=== PATIENT | male | born 1945 | race Caucasian/White ===

== ENCOUNTER → 2017-04-09 | Outpatient (CLI) | payer OTHER, MEDICARE ==
[~2017-04-09] VITALS: Ht 172.7 cm; Wt 73.5 kg
[~2017-04-09] MED LIST: CALCIUM 600 +1 EAC8 PO; CLARITIN10 MG PO; HYDROCHLOROTHIA25 M2 PO; LEVOTHYROXINE 0.1 MG PO; MULTIVITAMINS PO; NABUMETONE 750750 M1 PO; NASACORT10.8 ML NASAL; NEURONTIN600 MG PO; NORCO 10-325 T1 EACH PO; VITAMIN D2000 UNIT PO
--- NOTE | ~2017-04-09 | HPC ---
[facility] [address] [place] [address] PAIN MANAGEMENT CONSULTATION Name: RODOLFO BRICE JR Room #: REG [facility].#: [id number] Admission: 04/09/17 Attend Phys: Juan Bradley DO Discharge: Date of : 43 Report #: [id number] THIS REPORT FOR: //name// CC: Phoenix Bradley DATE OF SERVICE: 04/09/2017 The patient is a very pleasant 72-year-old gentleman seen in consultation at the request of Dr. Bourne for evaluation of pain, low back and right leg. The patient notes that he saw Dr. Bourne for right leg pain in October. Symptoms at that time were mostly cramping. About 6 weeks ago, developed acute exacerbation of pain requiring him to use a crutch, pain in the right leg, posterolateral aspect exacerbated with walking and standing. Again, using a crutch on the right side to offload some weight. He notes that he has tried nonsteroidal anti-inflammatory medications with nominal efficacy. Prednisone Dosepak afforded no relief. States he is typically very active, he cycles on a bicycle 3-4 times a week up to 1-1/2 to 2 hours at a time. Pain has become quite problematic and is interfering with function presently. States he has a prescription for hydrocodone, which he uses nominally. He takes gabapentin 600 mg 3 times a day, although this is actually a unique treatment for a baseline tremor. He describes continuous cramping, aching, tender pain, rates anywhere from 7-10 on a VAS. Denies specific lower extremity myelopathic symptoms, though states he is getting a little bit of weakness in the left side. Pain is exacerbated with standing and walking. REVIEW OF SYSTEMS: Complete review of systems attached to chart and gone over with the patient. SOCIAL HISTORY: He is , does not smoke or drink alcohol to excess. The patient is retired. He uses hydrochlorothiazide for history of renal stones, low dose 25 mg. Synthroid for long history of thyroid concerns, had thyroidectomy in 2000. He was diagnosed with an autoimmune disease, nonspecific several years ago, signs and symptoms have generally resolved. Pain impact score, however, is fairly high at 62 out 70. PHYSICAL EXAMINATION: VITAL SIGNS: This is a 5 feet 8 inches, 162 pound gentleman. BMI is 24.6 kilograms per meter squared. Blood pressure 145/87, pulse 60 and respirations are 18. NEUROLOGIC: Cranial nerves 2-12 are grossly intact. Pupils are equal and reactive to light and accommodation. Extraocular muscles are intact. There is no nystagmus or lateral gaze deviation. [address] [address] PAIN MANAGEMENT CONSULTATION Name: YUNIELRODOLFO AUSTIN MAYO [facility] [id number] Admission: 04/09/17 Attend Phys: Juan Bradley DO Discharge: Date of : 43 Report #: [id number] NECK: Thyroid is essentially unremarkable. He is status post thyroidectomy and no nodules are noted. Cervical range of motion is full. Upper extremity strength is preserved, 4/5. HEART: Regular and rhythmical with a mild 1-2/6 systolic ejection murmur. LUNGS: Clear to auscultation. ABDOMEN: Unremarkable. EXTREMITIES: Rises from chair using armrest, moderately antalgic gait, unable to walk on his right toes or heels. Lumbar flexion is good to 90 degrees. Right hip flexion and lower extremity extension and dorsiflexion, plantarflexion all diminished 3-4/5. Left leg is much stronger 4-5/5. Straight leg raise is positive at 30 degrees on the right. Patellar reflexes are preserved. Achilles reflexes are diminished on the right. MRI from 11/2016 notes herniated disk at L5-S1 right midline. ASSESSMENT: Symptomatic lumbar radiculopathy by clinical exam. RECOMMENDATIONS: 1. Epidural injection under fluoroscopy today at L5-S1. 2. Relafen 750 b.i.d. Discontinue vqmu-par-qaomaxn anti-inflammatories. 3. Follow up in 3 weeks for reevaluation. Thank you for allowing me to participate in the patient's care. I will keep you abreast of his progress. PROCEDURE NOTE PROCEDURE: Lumbar epidural injection under fluoroscopy. DESCRIPTION OF PROCEDURE: After both written and informed consent to include risk of spinal cord damage, increased pain, weakness and dural puncture, the patient was taken to the fluoroscopy suite, placed in the prone position. After sterile prep and drape, a skin wheal with lidocaine was raised. A 22-gauge epidural Tuohy needle was inserted in the midline at L5-S1 with good loss to resistance. Negative aspiration for cerebrospinal fluid or blood was noted. Then 1 mL of Omnipaque under biplanar fluoroscopy showed good spread within the epidural space. This was followed with 80 mg of triamcinolone plus 1 mL of 1.5% preservative-free Xylocaine, 0.5 mL Xylocaine was then injected to flush the needle; it was removed. The patient was monitored for an appropriate period of time and discharged in good and stable condition. <ELECTRONICALLY SIGNED> By: Juan Bradley DO 04/16/17 0847 1553 13 Juan Bradley, DO /nt
[2017-04-09 12:45] VITALS: BP 145/87
== END | disposition home or self-care (01) ==
LOC: PAIN 07:37
DX: M51.16 Intervertebral disc disorders with radiculopathy, lumbar region (principal); Z79.1 Long term (current) use of non-steroidal anti-inflammatories (NSAID)

== ENCOUNTER → 2017-04-27 | Outpatient (CLI) | payer OTHER, MEDICARE ==
[~2017-04-27] VITALS: Ht 172.7 cm; Wt 76.3 kg
--- NOTE | ~2017-04-27 | HPC ---
[facility] [place] [address] [address] [place] [address] PAIN MANAGEMENT CONSULTATION Name: RODOLFO BRICE JR Room #: REG [facility].#: [id number] Admission: 04/27/17 Attend Phys: Juan Bradley DO Discharge: Date of : 43 Report #: [id number] THIS REPORT FOR: //name// CC: Phoenix Bradley The patient is a 72-year-old gentleman seen in consultation 04/09/2017, given epidural injection at that time, returns to pain clinic today noting that he had significant overall improvement, in fact claiming 80% relief ongoing, but still has pain that he rates 5 on a VAS, right lateral leg burning sensation in the calf. Pain exacerbated with standing greater than 2-3 minutes. PHYSICAL EXAMINATION: Still remains relatively unchanged from last visit. Vital signs stable, BMI is 25.6. Positive straight leg raise on the right, slight decreased plantar flexion though, strength is improving. ASSESSMENT: Symptomatic lumbar radiculopathy. RECOMMENDATIONS: Repeat epidural injection under fluoroscopy today. Follow up in 1 month for reevaluation. Cancel if doing well. PROCEDURE: Lumbar epidural injection under fluoroscopy. PROCEDURE NOTE: After both written and informed consent to include risk of spinal cord damage, increased pain, weakness and dural puncture, the patient was taken to the fluoroscopy suite, placed in the prone position. After sterile prep and drape, a skin wheal with lidocaine was raised. A 22-gauge epidural Tuohy needle was inserted in the midline at L5-S1 with good loss to resistance. Negative aspiration for cerebrospinal fluid or blood was noted. Then 1 mL of Omnipaque under biplanar fluoroscopy showed good spread within the epidural space. This was followed with 80 mg of triamcinolone plus 1 mL of 1.5% preservative-free Xylocaine, 0.5 mL Xylocaine was then injected to flush the needle; it was removed. The patient was monitored for an appropriate period of time and discharged in good and stable condition. By: [id number] Juan Bradley DO /nt
[2017-04-27 10:30] VITALS: BP 139/80
== END | disposition home or self-care (01) ==
LOC: PAIN 07:11
DX: M54.16 Radiculopathy, lumbar region (principal); Z98.890 Other specified postprocedural states; Z79.899 Other long term (current) drug therapy; Z88.1 Allergy status to other antibiotic agents

== ENCOUNTER → 2017-06-04 | Outpatient (CLI) | payer OTHER, MEDICARE ==
[~2017-06-04] VITALS: Ht 172.7 cm; Wt 74.6 kg
[~2017-06-04] MED LIST changes: +VALIUM5 MG PO
--- NOTE | ~2017-06-04 | HPC ---
[facility] [place] [address] PAIN MANAGEMENT CONSULTATION Name: RODOLFO BRICE JR [facility] [id number] Admission: 06/04/17 Attend Phys: Juan Bradley DO Discharge: Date of : 43 Report #: [id number] THIS REPORT FOR: //name// CC: Phoenix Bradley DATE OF SERVICE: 06/04/2017 The patient is a 72-year-old gentleman seen on 04/27/2017 for a second lumbar epidural injection at L5-S1. He returns to pain clinic today noting pain is essentially absent, maybe a 1 on the VAS. Notes he has some occasional tingling in the right calf, still has sensation of walking on "crumbled up sock" on the right side, but notes the pain has dramatically improved. States he is actually pretty much pain free when I told him to stop the nabumetone, pain has come back a little bit, it is fairly nominal. PHYSICAL EXAMINATION: Shows pleasant 72-year-old gentleman, BMI is 25 kg/m2. Vital signs are stable as noted in the EMR. Rises from chair using armrest. Gait is tandem. Lower extremity strength is preserved. Dorsiflexion and plantarflexion is symmetric. Straight leg raise is negative at this time. Reviewed diagnostic findings including his MRI from 03/13/2017, which had noted a small right paracentral disk herniation at L5-S1 causing mass effect on the right paracentral nerve root. ASSESSMENT: Symptomatic lumbar radiculopathy, neuropathic pain, with dramatic improvement following 2 epidural injections. RECOMMENDATION: Long discussion with the patient today about therapeutic option. I told him to continue physical activity including daily walking and cycling, discontinue nabumetone, simply use Aleve qmcv-mve-kfqfika twice a day on active days. Encouraged nondaily use for general cardiac concerns, though patient has 0 risk factors (does not smoke, does not have hypertension, no dyslipidemia, no known coronary artery disease). I will be happy to see the patient if lumbar radicular symptoms recur. Presently, he is doing remarkably well. Discharge in stable condition. No followup appointment required. Thank you for allowing me to participate in the patient's care. <ELECTRONICALLY SIGNED> By: Juan Bradley DO 06/05/17 0654 [id number] Juan Bradley DO /nt
[2017-06-04 10:23] VITALS: BP 128/81
== END ==
LOC: PAIN 05-25 07:25
DX: M54.16 Radiculopathy, lumbar region (principal)

== ENCOUNTER → 2018-05-21 | Outpatient (CLI) | payer OTHER, MEDICARE ==
[~2018-05-21] VITALS: Ht 172.7 cm; Wt 74.2 kg
[~2018-05-21] MED LIST changes: +AZELASTINE137 MCG/0.; +CALCITRATE200 MG PO; +HYDROCODON-ACE1 EAC5 PO; +HYDROCODONE-AP1 EA11 PO; +MOBIC15 MG PO
--- NOTE | ~2018-05-21 | HPC ---
[facility] [address] [place] [address] PAIN MANAGEMENT CONSULTATION Name: YUNIELRODOLFO AVILA [facility]: [facility] [id number] Admission: 05/21/18 Attend Phys: Ash Donohue MD Discharge: Date of : 43 Report #: [id number] THIS REPORT FOR: //name// CC: Phoenix Donohue DATE OF SERVICE: 05/21/2018 FOLLOWUP COMPLAINT: Here for another injection pain was helped, but still having pain. FOLLOWUP HISTORY: The patient is a 73-year-old gentleman who has been seen and followed in the pain clinic because of lumbar radiculopathy. He underwent an epidural steroid injection at the last visit. He did clean benefits from this for greater than 2 weeks. He has noted some recurrence of pain and discomfort, which he describes as pain in the low back with pain that is radiating down into his buttocks into his foot with numbness and tingling into his right leg. He notes the pain is worse when he is sitting. He notes that the pain somewhat improves with standing. Rates it as an 8/10 at this point. Did notes numbness, tingling, deep aching sensation. He noticed the pain was doing reasonably well after the injection. It flared up after he was lifting some item on 04/18/2018. He has returned today with the hope of undergoing another epidural steroid injection and gleaning and increasing benefits from this. ALLERGIES: LEVAQUIN. CURRENT MEDICATIONS: Meloxicam 15 mg daily, azelastine, multivitamin, vitamin D3 2000 units, calcium 600 units, Nasacort, Claritin 10 mg, hydrochlorothiazide 25 mg and levothyroxine 0.1 PAIN CLINIC ASSESSMENT/PQRS: 1. History of osteoarthritis. The patient is not being treated for osteoarthritis or rheumatoid arthritis. 2. Height 5 feet 8 inches, weight 163 pounds, BMI is 24. 2. Vital signs: Blood pressure 137/89, pulse 71, respiratory rate 14 and room air saturation 98%. 3. Pain intensity 03/19. 4. Fall risk. The patient has not fallen in the last 3 months. 5. Blood thinner. The patient is not on a blood thinning medication. 6. Hypertension. The patient is not being treated for hypertension. 7. Opioid therapy 6 weeks. The patient receives his medications from one source, the pain clinic. 8. Risk assessment tool, low risk for opioid use. 9. Functional assessment tool 63/70. 10. Recreational drug use: The patient denies. 11. Tobacco: [place] [address] PAIN MANAGEMENT CONSULTATION Name: RODOLFO BRICE Room #: REG [facility]#: [id number] Admission: 05/21/18 Attend Phys: Ash Donohue MD Discharge: Date of : 43 Report #: [id number] 12. Alcohol: The patient denies use of alcoholic beverages on a regular basis. PHYSICAL EXAMINATION: GENERAL: The patient is a well-developed, well-nourished white male. Appears his stated age. He is alert and oriented x 3. His affect is appropriate. Speech is fluent, has a number of questions, which are appropriate. These were answered. HEENT: Normocephalic, atraumatic. Extraocular eye muscles intact. Sclerae nonicteric. Mucous membranes are moist. Sclerae not injected. Hearing is within normal limits. NECK: Without adenopathy or JVD. CHEST: Clear to auscultation without rhonchi or rales. HEART: Regular rate. S1, S2. ABDOMEN: Nontender, without organomegaly. MUSCULOSKELETAL: Upper extremity muscle strength is judged to be 5/5 for the major muscle groups without sensory change. The patient is without significant scoliosis, kyphosis or lordosis. Lower extremity muscle strength is judged to be 5/5 on the left side. The patient has some pain and discomfort radiating down to the right buttocks, right leg, posterior calf and a positive straight leg raise. Notes some weakness in his right leg. IMPRESSION: 1. Lumbar radiculopathy, L5-S1 on the right side. 2. Hypothyroidism. 3. History of renal stones. RECOMMENDATIONS: We discussed treatment options with the patient. Risks and benefits of an epidural steroid injection were again reviewed. Possible complications of the procedure were reviewed. They include but are not limited to infection, increased muscle soreness, headache, bleeding, worsening of pain, no improvement in pain. The patient elects to proceed. PROCEDURE NOTE: The patient was taken to the procedure area. He was assisted in getting on the examination table. His back was sterilely prepped with a Betadine solution. Fluoroscopy using anterior, posterior as well as lateral viewing were implemented. His back was infiltrated with 0.25% bupivacaine in a right paraspinous approach. This was the L5-S1. A total of 80 mg Depo-Medrol, 40 mg triamcinolone and 2 mL of 0.25% bupivacaine was injected. The patient tolerated the procedure well. There were no complications. He remained in the pain clinic for an appropriate amount of time. He will follow up in the future as needed. We would like to thank you for letting us participate in his care. [address] [address] PAIN MANAGEMENT CONSULTATION Name: RODOLFO BRICE JR Room #: REG [facility].#: [id number] Admission: 05/21/18 Attend Phys: Ash Donohue MD Discharge: Date of : 43 Report #: [id number] We hope he continues to improve. A script for hydrocodone have been rewritten. <ELECTRONICALLY SIGNED> By: Ash Donohue MD 05/24/18 1125 1747 0244 Ash Donohue MD /nt
[2018-05-21 07:53] VITALS: BP 137/89
== END | disposition home or self-care (01) ==
LOC: PAIN 07:01
DX: M54.16 Radiculopathy, lumbar region (principal); E03.9 Hypothyroidism, unspecified; M19.90 Unspecified osteoarthritis, unspecified site; I10 Essential (primary) hypertension; Z87.442 Personal history of urinary calculi; Z88.8 Allergy status to other drugs, medicaments and biological substances; Z79.899 Other long term (current) drug therapy; Z79.891 Long term (current) use of opiate analgesic

== ENCOUNTER → 2019-05-25 | Outpatient (CLI) | payer OTHER, MEDICARE ==
[~2019-05-25] VITALS: Ht 172.7 cm; Wt 76.3 kg
[~2019-05-25] MED LIST changes: +PREDNISONE 5 MG5 M1 PO
[2019-05-25 08:36] VITALS: BP 130/72
--- NOTE | 2019-05-25 08:58 | NUR ---
Pain Clinic Assessment: 1. History of Osteoarthritis: Not Applicable History of Rheumatoid Arthritis: Not Applicable 2. Height: 5 ft. 8 in. 172.7 cm. Weight: 168.2 lb. oz. 76.295 kg. Patient's BMI: 25.6 3. Vital Signs: BP: 130/72 Pulse: 72 Resp: 16 Temp: 02 Sat: 98 ECG Mon: 4. Pain Intensity: 5-LEG, 7-8-ANKLE 5. Fall Risk: Dizziness: N Needs help standing or walking: N Fallen in the last 3 months: N Fall risk comments: 6. Patient on Blood Thinner: None 7. History of Hypertension: N 8. Opioid Therapy greater than 6 weeks: N Opiate Contract Signed: 9. Risk Assessment Tool Provided: low risk 10. Functional Assessment Tool: 50/70 11. Recreational Drug Use: Never Drug Type: Tobacco Use: Never Smoker Tobacco Type: Amount or Packs/day: How Many Years: Alcohol Use: No Frequency: Quant:
--- NOTE | 2019-06-17 08:14 | HPC ---
[facility] [address] [address] PAIN MANAGEMENT CONSULTATION Name: YUNIELRODOLFO AVILA Room #: REG [facility] Jensen#: [id number] Admission: 05/25/19 Attend Phys: Ash Donohue MD Discharge: Date of : 43 Report #: [id number] THIS REPORT FOR: //name// CC: Phoenix Donohue DATE OF SERVICE: 05/25/2019 CHIEF COMPLAINT: Here for an injection. They helped in the past. HISTORY: The patient is a 74-year-old gentleman who has been followed in the Pain Clinic. He has undergone epidural steroid injections. He returns today indicating that his pain has returned. Since October, he has noted increased cramping in his left calf. It involves his buttocks and it is dull as it radiates down into his ankle. He has tried prednisone. Pain has waxed and waned since April. He is having it more frequent at this juncture. Use of prednisone has been less effective. He is considering going on a trip. He would like to undergo an injection. He has been active and mowing his lawn placing fertilizer in the yard and notes that prolonged sitting and increased activity exacerbates his pain. He would like to proceed with an epidural steroid injection at this juncture. ALLERGIES: LEVAQUIN. CURRENT MEDICATIONS: Prednisone 5 mg daily, hydrocodone 10/325 one q. 4 hours p.r.n., Caltrate 200 mg, Meloxicam 15 mg, azelastine 137 mcg, multivitamin tablet, vitamin D 200 units, Nasacort spray, Claritin 10 mg, hydrochlorothiazide 25 mg, Synthroid 0.1 mg. PAIN CLINIC ASSESSMENT AND PQRS: 1. Osteoarthritis. The patient is not being treated for osteoarthritis. 2. History of rheumatoid arthritis. He is not being treated for rheumatoid arthritis. 3. Height 5 feet 8 inches, weight 168 pounds, BMI is 25.6. 4. VITAL SIGNS: Blood pressure 130/72, pulse 72, respiratory rate 16, room air saturation 98%. 5. Pain intensity 5/10 in the leg and 7-8/10 in the ankle. 6. Fall risk. The patient has not fallen in the last 3 months. 7. Blood thinner. The patient is not on a blood thinning medication. 8. Hypertension. The patient is not being treated for hypertension. 9. Opioids greater than 6 weeks. The patient receives medications from one source is primary. 10. Risk assessment tool, low for opioid use. 11. Functional assessment tool, 50/70. 12. Recreational drug use. The patient denies use of recreational drugs. 13. Tobacco: The patient has never smoked. [address] [address] PAIN MANAGEMENT CONSULTATION Name: RODOLFO BRICE Room #: REG [facility] Jensen#: [id number] Admission: 05/25/19 Attend Phys: Ash Donohue MD Discharge: Date of : 41 Report #: [id number] 14. Alcohol. The patient denies frequent use of alcoholic beverages. PHYSICAL EXAMINATION: GENERAL: The patient is a well-developed, well-nourished white male. Appears his stated age. He is alert and oriented x 3. His affect is appropriate. Speech is fluent. HEENT: Normocephalic, atraumatic. Extraocular eye muscles intact. Sclerae nonicteric. Mucous membranes are moist. NECK: Without adenopathy or JVD. CHEST: Clear to auscultation without rhonchi or rales. HEART: Regular rate. S1, S2. ABDOMEN: Nontender. MUSCULOSKELETAL: Upper extremity muscle strength judged to be 5/5 for the major muscle groups in the upper extremity. The patient is without significant scoliosis, kyphosis or lordosis. Lower extremity muscle strength judged to be 5-/5 for the major muscle groups. The patient has some pain and discomfort that radiates down into his buttocks and posterior calf and positive straight leg raise with some weakness on the right side. IMPRESSION: 1. Lumbar radiculopathy with L5-S1 dermatomal distribution. 2. Hypothyroidism. 3. History of renal stones. RECOMMENDATIONS: We discussed treatment options with the patient. Risks and benefits of an epidural steroid injection were discussed. They include but are not limited to infection, worsening of pain, no improvement in pain, myofascial pain, spinal headache and the patient elects to proceed. PROCEDURE NOTE: The patient was taken to the procedure area. He was then assisted in getting on the examination table. His back was sterilely prepped with a Betadine solution. A pillow had been placed under his abdomen to bolster and improve positioning. Fluoroscopy using anterior, posterior as well as lateral viewing were implemented. A 0.25% bupivacaine was injected at the L5-S1 area. After this area had been anesthetized, a 17-gauge Tuohy with loss of resistance technique was used to gain access to the epidural space. There was no CSF, heme or paresthesia. Total of 80 mg of Depo-Medrol, 40 mg of triamcinolone and 2 mL of 0.25% bupivacaine was injected. The patient tolerated the procedure well. There were no complications. He remained in the pain clinic for an appropriate amount of time. He will follow up in the future as needed. [address] [address] PAIN MANAGEMENT CONSULTATION Name: RODOLFO BRICE JR Room #: REG [facility]#: [id number] Admission: 05/25/19 Attend Phys: Ash Donohue MD Discharge: Date of : 43 Report #: [id number] We would like to thank you for letting us participate in his care. We hope he continues to improve. <ELECTRONICALLY SIGNED> By: Ash Donohue MD 06/17/19 0814 1816 2318 Ash Donohue MD /PMT
== END | disposition home or self-care (01) ==
LOC: PAIN 06:55
DX: M54.16 Radiculopathy, lumbar region (principal); G89.29 Other chronic pain; E03.9 Hypothyroidism, unspecified; Z98.890 Other specified postprocedural states; Z88.8 Allergy status to other drugs, medicaments and biological substances; Z79.899 Other long term (current) drug therapy; Z79.891 Long term (current) use of opiate analgesic; Z87.442 Personal history of urinary calculi

== ENCOUNTER → 2019-07-22 | Outpatient (CLI) | payer OTHER, MEDICARE ==
[~2019-07-22] VITALS: Ht 172.7 cm; Wt 77.1 kg
[2019-07-22 08:47] VITALS: BP 119/71
--- NOTE | 2019-07-22 09:04 | NUR ---
Pain Clinic Assessment: 1. History of Osteoarthritis: Not Applicable History of Rheumatoid Arthritis: Not Applicable 2. Height: 5 ft. 8 in. 172.7 cm. Weight: 170.0 lb. oz. 77.112 kg. Patient's BMI: 25.9 3. Vital Signs: BP: 119/71 Pulse: 78 Resp: 14 Temp: 02 Sat: 97 ECG Mon: 4. Pain Intensity: 8-ANKLE 5. Fall Risk: Dizziness: N Needs help standing or walking: N Fallen in the last 3 months: N Fall risk comments: 6. Patient on Blood Thinner: None 7. History of Hypertension: N 8. Opioid Therapy greater than 6 weeks: N Opiate Contract Signed: 9. Risk Assessment Tool Provided: low risk 10. Functional Assessment Tool: 50/70 11. Recreational Drug Use: Never Drug Type: Tobacco Use: Never Smoker Tobacco Type: Amount or Packs/day: How Many Years: Alcohol Use: No Frequency: Quant:
== END | disposition home or self-care (01) ==
LOC: PAIN 07:30
DX: M54.16 Radiculopathy, lumbar region (principal); Z88.8 Allergy status to other drugs, medicaments and biological substances; Z79.899 Other long term (current) drug therapy

== ENCOUNTER → 2020-12-26 | Outpatient (CLI) | payer OTHER, MEDICARE ==
[~2020-12-26] VITALS: Ht 172.7 cm; Wt 77.2 kg
[~2020-12-26] MED LIST changes: +PROPRANOLOL 8080 MG PO
[2020-12-26 12:42] VITALS: BP 129/87
--- NOTE | 2020-12-26 12:49 | NUR ---
Pain Clinic Assessment: 1. History of Osteoarthritis: Not Applicable History of Rheumatoid Arthritis: Not Applicable 2. Height: 5 ft. 8 in. 172.7 cm. Weight: 170.2 lb. oz. 77.202 kg. Patient's BMI: 25.9 3. Vital Signs: BP: 129/87 Pulse: 57 Resp: 18 Temp: 02 Sat: 98 ECG Mon: 4. Pain Intensity: 5 5. Fall Risk: Dizziness: N Needs help standing or walking: N Fallen in the last 3 months: N Fall risk comments: 6. Patient on Blood Thinner: None 7. History of Hypertension: N 8. Opioid Therapy greater than 6 weeks: N Opiate Contract Signed: 9. Risk Assessment Tool Provided: low risk 10. Functional Assessment Tool: 50/70 11. Recreational Drug Use: Never Drug Type: Tobacco Use: Never Smoker Tobacco Type: Amount or Packs/day: How Many Years: Alcohol Use: No Frequency: Quant:
== END | disposition home or self-care (01) ==
LOC: PAIN 12:11
PROVIDERS: ATTEND Anesthesiology Pain Medicine
DX: M54.17 Radiculopathy, lumbosacral region (principal); G89.29 Other chronic pain; Z98.890 Other specified postprocedural states; Z79.899 Other long term (current) drug therapy; Z88.8 Allergy status to other drugs, medicaments and biological substances

== ENCOUNTER → 2021-06-07 | Outpatient (CLI) | payer OTHER, MEDICARE ==
[~2021-06-07] VITALS: Ht 172.7 cm; Wt 74.6 kg
[2021-06-07 09:23] VITALS: BP 124/68
--- NOTE | 2021-06-07 09:38 | NUR ---
Pain Clinic Assessment: 1. History of Osteoarthritis: Not Applicable History of Rheumatoid Arthritis: Not Applicable 2. Height: 5 ft. 8 in. 172.7 cm. Weight: 164.4 lb. oz. 74.571 kg. Patient's BMI: 25.0 3. Vital Signs: BP: 124/68 Pulse: 62 Resp: 14 Temp: 02 Sat: 98 ECG Mon: 4. Pain Intensity: 5 5. Fall Risk: Dizziness: N Needs help standing or walking: N Fallen in the last 3 months: N Fall risk comments: 6. Patient on Blood Thinner: None 7. History of Hypertension: N 8. Opioid Therapy greater than 6 weeks: N Opiate Contract Signed: 9. Risk Assessment Tool Provided: low risk 10. Functional Assessment Tool: 50/70 11. Recreational Drug Use: Never Drug Type: Tobacco Use: Never Smoker Tobacco Type: Amount or Packs/day: How Many Years: Alcohol Use: Yes Frequency: Monthly Quant: 2
== END | disposition home or self-care (01) ==
LOC: PAIN 07:02
PROVIDERS: ATTEND Anesthesiology Pain Medicine
DX: M51.16 Intervertebral disc disorders with radiculopathy, lumbar region (principal); M48.061 Spinal stenosis, lumbar region without neurogenic claudication; G89.29 Other chronic pain; E03.9 Hypothyroidism, unspecified; Z98.890 Other specified postprocedural states; Z79.899 Other long term (current) drug therapy; Z87.442 Personal history of urinary calculi; Z88.8 Allergy status to other drugs, medicaments and biological substances

== ENCOUNTER → 2021-09-18 | Outpatient (CLI) | payer OTHER, MEDICARE ==
[~2021-09-18] VITALS: Ht 172.7 cm; Wt 77.9 kg
[~2021-09-18] MED LIST changes: +CEPHALEXIN500 MG PO; +TRAMADOL 50 MG50 MG PO
[2021-09-18 09:06] VITALS: BP 116/76
--- NOTE | 2021-09-18 09:32 | NUR ---
Pain Clinic Assessment: 1. History of Osteoarthritis: Not Applicable History of Rheumatoid Arthritis: Not Applicable 2. Height: 5 ft. 8 in. 172.7 cm. Weight: 171.8 lb. oz. 77.928 kg. Patient's BMI: 26.1 3. Vital Signs: BP: 116/76 Pulse: 68 Resp: 16 Temp: 02 Sat: 97 ECG Mon: 4. Pain Intensity: 8 5. Fall Risk: Dizziness: N Needs help standing or walking: N Fallen in the last 3 months: N Fall risk comments: 6. Patient on Blood Thinner: None 7. History of Hypertension: N 8. Opioid Therapy greater than 6 weeks: N Opiate Contract Signed: 9. Risk Assessment Tool Provided: low risk 10. Functional Assessment Tool: 50/70 11. Recreational Drug Use: Never Drug Type: Tobacco Use: Never Smoker Tobacco Type: Amount or Packs/day: How Many Years: Alcohol Use: Yes Frequency: Quant:
== END ==
LOC: PAIN 07:45
PROVIDERS: ATTEND Anesthesiology Pain Medicine
DX: G89.29 Other chronic pain (principal); M25.572 Pain in left ankle and joints of left foot; M79.605 Pain in left leg

== ENCOUNTER → 2021-09-25 | Outpatient (CLI) | payer OTHER, MEDICARE ==
[~2021-09-25] VITALS: Ht 172.7 cm; Wt 76.2 kg
[2021-09-25 09:14] VITALS: BP 136/70
--- NOTE | 2021-09-25 09:27 | NUR ---
[facility] Assessment: 1. History of Osteoarthritis: Not Applicable History of Rheumatoid Arthritis: Not Applicable 2. Height: 5 ft. 8 in. 172.7 cm. Weight: 168.0 lb. oz. 76.204 kg. Patient's BMI: 25.6 3. Vital Signs: BP: 136/70 Pulse: 67 Resp: 16 Temp: 02 Sat: 97 ECG Mon: 4. Pain Intensity: 2 TO 6 5. Fall Risk: Dizziness: N Needs help standing or walking: N Fallen in the last 3 months: N Fall risk comments: 6. Patient on Blood Thinner: None 7. History of Hypertension: N 8. Opioid Therapy greater than 6 weeks: N Opiate Contract Signed: 9. Risk Assessment Tool Provided: low risk 10. Functional Assessment Tool: 50/70 11. Recreational Drug Use: Never Drug Type: Tobacco Use: Never Smoker Tobacco Type: Amount or Packs/day: How Many Years: Alcohol Use: Yes Frequency: Special Occasions Quant: 1
== END | disposition home or self-care (01) ==
LOC: PAIN 07:02
PROVIDERS: ATTEND Anesthesiology Pain Medicine
DX: M54.17 Radiculopathy, lumbosacral region (principal); G89.29 Other chronic pain; E03.9 Hypothyroidism, unspecified; Z87.442 Personal history of urinary calculi; Z98.890 Other specified postprocedural states; Z79.899 Other long term (current) drug therapy; Z88.8 Allergy status to other drugs, medicaments and biological substances